=== PATIENT | female | born 1965 | race Caucasian/White ===

== ENCOUNTER 2019-04-28 13:16 | Emergency (ER) | payer BC, OTHER ==
[2019-04-28] MEDS ORDERED: Albuterol/Ipratropium 3.0-0.5 MG/3 ML Neb Soln NEB ONE (14:17)
--- NOTE | 2019-04-28 14:22 | EDM.PDOC ---
ED HPI GENERAL MEDICAL PROBLEM - General Chief Complaint: Respiratory Problem Stated Complaint: FLU LIKE SYMTOMPS Time Seen by Provider: 04/28/19 14:05 - History of Present Illness INITIAL COMMENTS - FREE TEXT/NARRATIVE: HISTORY AND PHYSICAL: History of present illness: The patient is a 54-year-old female who has no pulmonary history but is a smoker of a half a pack per day and presents with 3 days of cough congestion and nasal pressure and drainage. She has not had a fever and she did have some nausea and vomiting on the first day of this illness but that has improved and she is taking fluids. She has no chest pain no abdominal pain no flank pain and has been eating and drinking normally. She has tried some [id number] preps but has not taken anything specifically for her sinuses such as antihistamines. She says that she has a headache and feels pressure in her head and is blowing a lot of mucus out of her nose and coughing up green phlegm. Review of systems: As per history of present illness and below otherwise all systems reviewed and negative. Past medical history: As per history of present illness and as reviewed below otherwise noncontributory. Surgical history: As per history of present illness and as reviewed below otherwise noncontributory. Social history: No reported history of drug or alcohol abuse. Family history: As per history of present illness and as reviewed below otherwise noncontributory. Physical exam: General: Well-developed well-nourished female who is nontoxic and vital signs are noted by me. She has nasal quality to voice but is not breathless HEENT: Atraumatic, normocephalic, pupils reactive, negative for conjunctival pallor or scleral icterus, mucous membranes moist, throat clear, neck supple, nontender, trachea midline. No cervical adenopathy or nuchal rigidity and the nasal turbinates are boggy. The patient does have some maxillary sinus tenderness bilaterally on palpation Lungs: Clear to auscultation, breath sounds equal bilaterally, chest nontender. No wheezing or stridor but a harsh cough is appreciated in the ED Heart: S1S2, regular in rhythm no overt murmurs Abdomen: Soft, nondistended, nontender. NABS Pelvis: Deferred Genitourinary: Deferred. Rectal: Deferred. Extremities: Atraumatic, negative for cords or calf pain. Neurovascular unremarkable. Neuro: Awake, alert, oriented. Cranial nerves II through XII unremarkable. Cerebellum unremarkable. Motor and sensory unremarkable throughout. Exam nonfocal. Diagnostics: Influenza chest x-ray Therapeutics: DuoNeb spacer and spacer teaching, prednisone I discussed with the patient her chest x-ray findings which revealed some disc changes. We will give her spacer and teaching and Ventolin inhaler for home along with prednisone and Augmentin for her sinusitis. Impression: Bronchitis and sinusitis, history of tobacco use and probable COPD Definitive disposition and diagnosis as appropriate pending reevaluation and review of above. head Pain Score (Numeric/FACES): 4 - Related Data Allergies Allergy/AdvReac Type Severity Reaction Status Date / Time No Known Allergies Allergy Verified 04/28/19 14:06 Home Meds: Home Meds . [No Known Home Meds] 04/28/19 [History] Past Medical History - Past Health History Medical/Surgical History: Denies Medical/Surgical History - Past Surgical History HEENT Surgical History: Reports: Tonsillectomy Social & Family History - Family History Family Medical History: Noncontributory - Tobacco Use Smoking Status *Q: Current Every Day Smoker Years of Tobacco use: 30 Packs/Tins Daily: 0.5 - Recreational Drug Use Recreational Drug Use: No ED ROS GENERAL - Review of Systems Review Of Systems: Comprehensive ROS is negative, except as noted in HPI. ED EXAM, GENERAL - Physical Exam Exam: See Below (See dictation) Course - Vital Signs Last Recorded V/S: Last Vital Signs Temp 36.1 C 04/28/19 15:13 Pulse 58 L 04/28/19 15:13 Resp 16 04/28/19 15:13 BP 118/55 L 04/28/19 15:13 Pulse Ox 98 04/28/19 15:13 - Orders/Labs/Meds Orders: Active Orders 24 hr Category Date Time Status Communication Order [RC] STAT Care 04/28/19 15:46 Ordered RT Aerosol Therapy [RC] ASDIRECTED Care 04/28/19 14:17 Active predniSONE Med 04/28/19 15:46 Once 20 mg PO ONETIME ONE Meds: Medications Discontinued Medications Generic Name Dose Route Start Last Admin Trade Name Freq PRN Reason Stop Dose Admin Albuterol/Ipratropium 3 ml 04/28/19 14:17 04/28/19 14:33 Duoneb 3.0-0.5 Mg/3 Ml NEB 04/28/19 14:18 3 ml ONETIME ONE Administration Departure - Departure Time of Disposition: 15:47 Disposition: Home, Self-Care 01 Condition: Good Clinical Impression: Bronchitis Sinusitis Qualifiers: Sinusitis location: unspecified location Chronicity: acute Recurrence: not specified as recurrent Qualified Code(s): J01.90 - Acute sinusitis, unspecified - Discharge Information Referrals: PCP,None [Primary Care Provider] - Forms: ED Department Discharge Additional Instructions: The following information is given to patients seen in the emergency department who are being discharged to home. This information is to outline your options for follow-up care. We provide all patients seen in our emergency department with a follow-up referral. The need for follow-up, as well as the timing and circumstances, are variable depending upon the specifics of your emergency department visit. If you don't have a primary care physician on staff, we will provide you with a referral. We always advise you to contact your personal physician following an emergency department visit to inform them of the circumstance of the visit and for follow-up with them and/or the need for any referrals to a consulting specialist. The emergency department will also refer you to a specialist when appropriate. This referral assures that you have the opportunity for followup care with a specialist. All of these measure are taken in an effort to provide you with optimal care, which includes your followup. Under all circumstances we always encourage you to contact your private physician who remains a resource for coordinating your care. When calling for followup care, please make the office aware that this follow-up is from your recent emergency room visit. If for any reason you are refused follow-up, please contact the [facility] emergency department at and ask to speak to the emergency department charge nurse. [facility] Primary care- Internal Medicine and Family [address] [id number] Push hydration and reduce and/or quit tobacco use as we discussed. Please use your inhaler with spacer you have been given as directed and take prednisone and Augmentin as prescribed. Use [id number] Claritin/Zyrtec/Benadryl to help dry up the fluid in her sinuses. Please call and schedule a follow-up appointment with your provider or one of hours and return to ER as needed and as discussed - My Orders Last 24 Hours: My Active Orders 04/28/19 14:17 RT Aerosol Therapy [RC] ASDIRECTED 04/28/19 15:46 Communication Order [RC] STAT predniSONE 20 mg PO ONETIME ONE - Assessment/Plan Last 24 Hours: My Active Orders 04/28/19 14:17 RT Aerosol Therapy [RC] ASDIRECTED 04/28/19 15:46 Communication Order [RC] STAT predniSONE 20 mg PO ONETIME ONE
--- NOTE | 2019-04-28 15:32 | CR ---
EXAM DATE: 04/28/19 PATIENT'S AGE: 54 Chest: Two views of the chest were obtained. Comparison: No prior chest x-ray. Heart size and mediastinum are normal. Lungs are clear but hyperinflated. Bony structures appear within normal limits for the patient's age. Impression: 1. Emphysematous change. 2. Nothing acute is appreciated on two view chest x-ray. Diagnostic code #2 Report Signed by Proxy. ALEX
[2019-04-28] MEDS ORDERED: predniSONE 20 MG Tab PO ONE (15:46)
[2019-04-28 16:13] VITALS: BP 115/68; PULSE 70
== END 2019-04-28 16:13 | disposition home or self-care (01) ==
LOC: MW.ED 13:16
DX: J01.90 Acute sinusitis, unspecified (principal); J40 Bronchitis, not specified as acute or chronic; F17.210 Nicotine dependence, cigarettes, uncomplicated; Z90.89 Acquired absence of other organs
CPT/HCPCS: 71046; 87804; 94640; 99284; A9270; J7620-GY

== ENCOUNTER 2022-10-13 12:53 | Emergency (ER) | payer BC, OTHER ==
[2022-10-13] MEDS ORDERED: Sodium Chloride 0.9% 2.5 ML Syringe FLUSH PRN (14:26)
[2022-10-13] MEDS ORDERED: Sodium Chloride 0.9% 10 ML Syringe FLUSH PRN (14:26)
[2022-10-13] MEDS ORDERED: Ketorolac 30 MG/ML SDV IVPUSH ONE (14:28)
[2022-10-13 15:11] LABS: CARBON DIOXIDE,CO2 23.9 mmol/L (21.0-32.0); POTASSIUM,K 3.9 mmol/L (3.5-5.1)
[2022-10-13 17:59] VITALS: BP 127/72; PULSE 65
== END 2022-10-13 17:59 | disposition home or self-care (01) ==
LOC: MW.ED 12:53
DX: R19.00 Intra-abdominal and pelvic swelling, mass and lump, unspecified site (principal); M54.9 Dorsalgia, unspecified; Z72.0 Tobacco use
CPT/HCPCS: 36415; 74177; 80053; 81001; 83690; 85025; 96374; 99284; J1885; J3490

== ENCOUNTER 2022-12-04 06:33 | Day surgery (SDC) | payer BC ==
[2022-12-04] MEDS ORDERED: Lactated Ringers 1,000 ML IV SCH (07:00)
[2022-12-04] MEDS ORDERED: Ondansetron 4 MG/2 ML SDV IVPUSH PRN (07:09)
[2022-12-04] MEDS ORDERED: droPERidol 5 MG/2 ML SDV IVPUSH PRN (07:09)
[2022-12-04] MEDS ORDERED: fentaNYL 50 MCG/ML SDV IVPUSH PRN (07:09)
[2022-12-04] MEDS ORDERED: Naloxone 0.4 MG/ML SDV IVPUSH PRN (07:09)
[2022-12-04] MEDS ORDERED: Morphine 2 MG/ML SYRINGE IVPUSH PRN (07:09)
[2022-12-04] MEDS ORDERED: Metoclopramide 10 MG/2 ML SDV IVPUSH PRN (07:09)
[2022-12-04] MEDS ORDERED: Albuterol 0.083% 2.5 MG/3 ML Neb Soln NEB PRN (07:09)
[2022-12-04] MEDS ORDERED: HYDROmorphone 1 MG/ML Syringe IVPUSH PRN (07:09)
[2022-12-04] MEDS ORDERED: Propofol 200 MG/20 ML SDV ONE (07:27)
[2022-12-04] MEDS ORDERED: fentaNYL 250 MCG/5 ML SDV ONE (07:27)
[2022-12-04] MEDS ORDERED: propofoL 50 ML ONE (07:27)
[2022-12-04] MEDS ORDERED: Bupivacaine 0.5% 10 ML SDV ONE (07:28)
[2022-12-04] MEDS ORDERED: Lidocaine 1% 20 ML MDV ONE (07:29)
[2022-12-04] MEDS ORDERED: Heparin Sodium 100 Units/ML 3 ML Syringe ONE (07:41)
[2022-12-04 09:26] LABS: BASOPHILS PERCENT AUTO 0.4 % (0.0-1.5); EOSINOPHILS ABSOLUTE AUTO 0.2 K/uL (0.0-0.7); EOSINOPHILS PERCENT AUTO 1.9 % (0.0-7.0); HEMATOCRIT 35.5 % (36.0-46.0); HEMOGLOBIN 11.8 g/dL (12.0-16.0); LYMPHOCYTES ABSOLUTE AUTO 1.6 K/uL (0.6-2.4); LYMPHOCYTES PERCENT AUTO 19.6 % (16.0-40.0); MEAN CORPUSCULAR HEMOGLOBIN 31.3 pg (27.0-32.0); MEAN CORPUSCULAR HGB CONC 33.2 g/dL (31.0-37.0); MEAN CORPUSCULAR VOLUME 94.2 fL (80.0-98.0); MONOCYTES ABSOLUTE AUTO 0.4 K/uL (0.0-0.8); MONOCYTES PERCENT AUTO 4.8 % (0.0-15.0); NEUTROPHILS ABSOLUTE AUTO 5.8 K/uL (1.4-5.7); NEUTROPHILS PERCENT AUTO 73.3 % (48.0-80.0); NRBC ABSOLUTE 0 K/uL; PLATELET COUNT,PLT 321 K/uL (150-400); RED BLOOD CELL COUNT 3.77 M/uL (4.30-5.90); WHITE BLOOD CELL COUNT,WBC 7.94 K/uL (4.0-11.0)
[2022-12-04 09:35] LABS: A/G RATIO 0.9 (0.9-1.6); ALBUMIN 2.8 g/dL (3.4-5.0); BILIRUBIN TOTAL 0.1 mg/dL (0.2-1.0); CARBON DIOXIDE,CO2 24.7 mmol/L (21.0-32.0); CREATININE 0.7 mg/dL (0.6-1.0); EST CRCL DRUG DOSING (CG) 81.71 mL/min; MAGNESIUM 1.7 mg/dL (1.8-2.4); POTASSIUM,K 3.8 mmol/L (3.5-5.1)
[2022-12-04 10:07] VITALS: BP 105/61; PULSE 69
[2022-12-04] MEDS ORDERED: ceFAZolin 2 GM in Sodium Chloride 0.9% 50 ML IV ONE (11:50)
== END 2022-12-04 10:10 | disposition home or self-care (01) ==
LOC: MW.SDS 06:33
PROVIDERS: ATTEND Surgery
DX: C80.1 Malignant (primary) neoplasm, unspecified (principal); F17.210 Nicotine dependence, cigarettes, uncomplicated; K21.9 Gastro-esophageal reflux disease without esophagitis; Z98.890 Other specified postprocedural states; Z79.899 Other long term (current) drug therapy
CPT/HCPCS: 36415; 36561; 71045; 76000; 80053; 83735; 85025; J1642; J2704; J3010; J3490; J7120; C1788